=== PATIENT | male | born 1980 | race Caucasian/White ===

== ENCOUNTER 2017-01-30 12:28 | Emergency (ER) | payer OTHER ==
--- NOTE | 2017-01-30 13:53 | CR ---
Sinus Less 3V HISTORY: foreign body check in forehead FINDINGS: There is a tiny, 1 x 2 mm metallic foreign body overlying the lateral right frontal region. This is likely in a subcutaneous location. No fracture is identified. Paranasal sinuses and mastoid air cells are clear. There is no nasal septal deviation. I see no soft tissue mass. No lytic or blast ic bony lesion can be seen. IMPRESSION: Small metallic foreign body is noted a couple centimeters above the right orbit. This is likely subcutaneous in location.
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
== END 2017-01-30 14:19 | disposition home or self-care (01) ==
LOC: JP.ED 12:28
DX: S01.84XA Puncture wound with foreign body of other part of head, initial encounter (principal); W45.8XXA Other foreign body or object entering through skin, initial encounter
CPT/HCPCS: 99283

== ENCOUNTER 2017-12-31 13:31 | Emergency (ER) | payer BC ==
[2017-12-31] MEDS ORDERED: Diphtheria,Pertussis(Acell),Tetanus Vaccine 0.5 ML SDV IM ONE (13:58)
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
[2017-12-31] MEDS ORDERED: Proparacaine 0.5% Ophth Soln 15 ML Bottle EYEBOTH ONE (14:23)
[2017-12-31] MEDS ORDERED: Proparacaine 0.5% Ophth Soln 15 ML Bottle ONE (14:23)
[2017-12-31] MEDS ORDERED: Proparacaine 0.5% Ophth Soln 15 ML Bottle EYERT ONE (14:24)
== END 2017-12-31 14:44 | disposition home or self-care (01) ==
LOC: JP.ED 13:31
DX: S01.511A Laceration without foreign body of lip, initial encounter (principal); S05.01XA Injury of conjunctiva and corneal abrasion without foreign body, right eye, initial encounter; F17.210 Nicotine dependence, cigarettes, uncomplicated; Z23 Encounter for immunization; Y04.0XXA Assault by unarmed brawl or fight, initial encounter
CPT/HCPCS: 12013; 90471; 90715; 99283; A9270